=== PATIENT | female | born 1975 | race Hispanic/Latino ===

== ENCOUNTER 2020-11-06 19:06 | Emergency (ER) | payer MEDICARE ==
[2020-11-06 19:58] LABS: HEMATOCRIT 33.7 % (36-48); LYMPHOCYTES % (AUTO) 45.8 % (21.0-51.0); MEAN CORPUSCULAR HEMOGLOBIN 28.8 pg (27.0-33.0); MEAN CORPUSCULAR HGB CONC 34.4 g/dL (32.0-36.0); MEAN CORPUSCULAR VOLUME 83.6 fL (79-99); MONOCYTES % (AUTO) 6.6 % (3.0-13.0); NEUTROPHILS % (AUTO) 47.4 % (40.0-77.0); PLATELET COUNT (AUTO) 197 K/uL (130-400); RED BLOOD CELL COUNT(AUTO) 4.03 MIL/uL (4.00-5.50); RED CELL DISTRIBUTION WIDTH 12.8 % (11.0-15.5); WHITE BLOOD COUNT (AUTO) 4.4 K/uL (4.8-10.8)
[2020-11-06 20:14] LABS: INR 1.08 (0.85-1.15); PROTHROMBIN TIME 11.7 SEC (9.6-11.6)
[2020-11-06 20:16] LABS: PARTIAL THROMBOPLASTIN TIME 26.4 SEC (26.3-35.5)
[2020-11-06 20:21] LABS: CREATININE 0.7 mg/dL (0.5-1.5); POTASSIUM 3.9 mmol/L (3.5-5.1)
[2020-11-06 20:26] LABS: ALBUMIN 3.7 g/dL (3.5-5.0); BILIRUBIN,TOTAL 0.7 mg/dL (0.2-1.0); TOTAL PROTEIN, SERUM 6.6 g/dL (6.0-8.3)
[2020-11-06 20:38] LABS: CREATINE KINASE, TOTAL 60 U/L (21-232); LIPASE 88 U/L (114-286)
[2020-11-06 21:08] LABS: APPEARANCE,URINE Clear (CLEAR); BILIRUBIN,URINE Negative (NEGATIVE); COLOR,URINE Yellow (YELLOW); GLUCOSE, URINE (UA) Negative (NEGATIVE); KETONES,URINE Negative (NEGATIVE); LEUKOCYTE ESTERASE ,URINE Trace (NEGATIVE); NITRATE,URINE Negative (NEGATIVE); OCCULT BLOOD,URINE Moderate (NEGATIVE); PH,URINE 6.5 (5.0-8.0); PROTEIN,URINE Negative (NEGATIVE)
[2020-11-06 21:24] LABS: WBC,URINE 0-1 /HPF (0-1)
[2020-11-06 21:25] LABS: BACTERIA,URINE Rare /HPF (None Seen); SQUAMOUS EPITHELIAL CELL,UR Rare /HPF (0-2)
[2020-11-06] MEDS ORDERED: SODIUM CHLORIDE 0.9% 1000ML 1,000 ML IV ONE (21:42)
[2020-11-06] MEDS ORDERED: CEFTRIAXONE SODIUM 1 GM ONE (22:02)
== END 2020-11-07 00:28 | disposition home or self-care (01) ==
LOC: EDH 19:06
DX: N39.0 Urinary tract infection, site not specified (principal); E86.9 Volume depletion, unspecified; J45.909 Unspecified asthma, uncomplicated; F20.9 Schizophrenia, unspecified; F31.9 Bipolar disorder, unspecified; I50.9 Heart failure, unspecified; Z88.1 Allergy status to other antibiotic agents; Z88.0 Allergy status to penicillin; Z88.2 Allergy status to sulfonamides; Z88.6 Allergy status to analgesic agent
CPT/HCPCS: 36415; 51701; 70450; 71045; 80053; 81001; 82140; 82550; 83605; 83690; 84484; 85025; 85610; 85730; 87040 ×2; 87088; 93005; 96365; 96366; 99285; J0696; J7030

== ENCOUNTER 2021-04-10 11:46 | Emergency (ER) | payer MEDICARE ==
[~2021-04-10] VITALS: Ht 134.6 cm; Wt 61.2 kg
[2021-04-10 13:00] LABS: BASOPHILS % (AUTO) 0.2 % (0.0-5.0); LYMPHOCYTES % (AUTO) 44.8 % (21.0-51.0); MEAN CORPUSCULAR HGB CONC 34.8 g/dL (32.0-36.0); MEAN CORPUSCULAR VOLUME 83.1 fL (79-99); MONOCYTES % (AUTO) 6.5 % (3.0-13.0); NEUTROPHILS % (AUTO) 48.3 % (40.0-77.0); PLATELET COUNT (AUTO) 217 K/uL (130-400); RED BLOOD CELL COUNT(AUTO) 3.73 MIL/uL (4.00-5.50); RED CELL DISTRIBUTION WIDTH 13.2 % (11.0-15.5)
[2021-04-10 13:08] LABS: CREATININE 0.7 mg/dL (0.5-1.5); POTASSIUM 3.9 mmol/L (3.5-5.1)
[2021-04-10 13:12] LABS: ALBUMIN 3.6 g/dL (3.5-5.0); BILIRUBIN,TOTAL 0.8 mg/dL (0.2-1.0); TOTAL PROTEIN, SERUM 6.8 g/dL (6.0-8.3)
[2021-04-10 14:17] LABS: APPEARANCE,URINE Clear (CLEAR); BILIRUBIN,URINE Negative (NEGATIVE); COLOR,URINE Yellow (YELLOW); GLUCOSE, URINE (UA) Negative (NEGATIVE); KETONES,URINE Negative (NEGATIVE); LEUKOCYTE ESTERASE ,URINE Negative (NEGATIVE); NITRATE,URINE Negative (NEGATIVE); OCCULT BLOOD,URINE Small (NEGATIVE); PH,URINE 6.5 (5.0-8.0); PROTEIN,URINE Negative (NEGATIVE); UROBILINOGEN,URINE 0.2 mg/dL (0.2-1.0)
[2021-04-10 14:39] LABS: BACTERIA,URINE Few /HPF (None Seen); SQUAMOUS EPITHELIAL CELL,UR Few /HPF (0-2)
[2021-04-10 14:40] LABS: MUCUS,URINE Few LPF (None Seen)
[2021-04-10 19:02] VITALS: BP 120/89
== END 2021-04-10 19:26 | disposition home or self-care (01) ==
LOC: EDH 11:46
DX: R41.82 Altered mental status, unspecified (principal); R30.0 Dysuria; E03.9 Hypothyroidism, unspecified; E78.5 Hyperlipidemia, unspecified; F20.9 Schizophrenia, unspecified; I50.9 Heart failure, unspecified; J44.9 Chronic obstructive pulmonary disease, unspecified; Z88.0 Allergy status to penicillin; Z88.1 Allergy status to other antibiotic agents; Z88.2 Allergy status to sulfonamides; Z88.6 Allergy status to analgesic agent; Z92.21 Personal history of antineoplastic chemotherapy; Z92.3 Personal history of irradiation
CPT/HCPCS: 36415; 80053; 81001; 82140; 85025; 87040; 87088; 93005

== ENCOUNTER 2021-05-08 13:13 | Inpatient (IN) | payer MEDICARE ==
[~2021-05-08] VITALS: Ht 134.6 cm; Wt 62.8 kg
[2021-05-08 14:48] LABS: EOSINOPHILS % (AUTO) 0.2 % (0.0-8.0); HEMATOCRIT 32.7 % (36-48); LYMPHOCYTES % (AUTO) 42.9 % (21.0-51.0); MEAN CORPUSCULAR HEMOGLOBIN 28.7 pg (27.0-33.0); MEAN CORPUSCULAR HGB CONC 34.9 g/dL (32.0-36.0); MEAN CORPUSCULAR VOLUME 82.4 fL (79-99); MONOCYTES % (AUTO) 6.3 % (3.0-13.0); NEUTROPHILS % (AUTO) 50.4 % (40.0-77.0); PLATELET COUNT (AUTO) 137 K/uL (130-400); RED BLOOD CELL COUNT(AUTO) 3.97 MIL/uL (4.00-5.50); RED CELL DISTRIBUTION WIDTH 13.3 % (11.0-15.5); WHITE BLOOD COUNT (AUTO) 4.6 K/uL (4.8-10.8)
[2021-05-08 14:58] LABS: CARBON DIOXIDE 27 mmol/L (21-32); CHLORIDE 104 mmol/L (101-111); CREATININE 0.8 mg/dL (0.5-1.5); GLOMERULAR FILTR. RATE CALC 82 mL/min (>60); GLUCOSE,RANDOM 99 mg/dL (70-105); POTASSIUM 4.1 mmol/L (3.5-5.1); SODIUM SERUM 139 mmol/L (136-145); UREA NITROGEN, BLOOD 11 mg/dL (7-18)
[2021-05-08 15:04] LABS: ALANINE AMINOTRANSFERASE 50 U/L (12-78); ALBUMIN 3.8 g/dL (3.5-5.0); ASPARTATE AMINOTRANSFERASE 36 U/L (10-37); BILIRUBIN,TOTAL 1.1 mg/dL (0.2-1.0); CRP QUANTITATIVE < 2.00 mg/L (0.00-9.0); LIPASE 81 U/L (114-286); TOTAL PROTEIN, SERUM 6.7 g/dL (6.0-8.3)
[2021-05-08 15:06] LABS: AMMONIA 25 umol/L (11-32); CREATINE KINASE, TOTAL 86 U/L (21-232)
[2021-05-08 15:28] LABS: APPEARANCE,URINE Clear (CLEAR); BILIRUBIN,URINE Negative (NEGATIVE); COLOR,URINE Yellow (YELLOW); GLUCOSE, URINE (UA) Negative (NEGATIVE); KETONES,URINE Negative (NEGATIVE); LEUKOCYTE ESTERASE ,URINE Negative (NEGATIVE); NITRATE,URINE Negative (NEGATIVE); OCCULT BLOOD,URINE Moderate (NEGATIVE); PH,URINE 5.5 (5.0-8.0); PROTEIN,URINE Negative (NEGATIVE); UROBILINOGEN,URINE 0.2 mg/dL (0.2-1.0)
[2021-05-08 15:29] LABS: HCG,QUAL RESULT NEGATIVE (NEGATIVE)
[2021-05-08 15:40] LABS: BACTERIA,URINE Few /HPF (None Seen); MUCUS,URINE Rare LPF (None Seen); SQUAMOUS EPITHELIAL CELL,UR 0-2 /HPF (0-2)
[2021-05-08] MEDS ORDERED: LACTULOSE 20 GM/30 ML UDCUP ONE (16:25)
[2021-05-08] MEDS ORDERED: 0.9%NACL 1000ML 1,000 ML IV ONE (16:27)
[2021-05-08] MEDS ORDERED: LACTULOSE 20 GM/30 ML UDCUP PO ONE (16:30)
[2021-05-08] MEDS ORDERED: 0.9%NACL 1000ML 1,000 ML IV SCH (16:30)
[2021-05-08] MEDS ORDERED: DiphenhydrAMINE HCL 50 MG/ML VIAL IV PRN (17:30)
[2021-05-08] MEDS ORDERED: LACTULOSE 20 GM/30 ML UDCUP PO PRN (17:30)
[2021-05-08] MEDS: 0.9%NACL 1000ML 1,000 ML IV SCH (17:30)
[2021-05-08] MEDS ORDERED: NITROGLYCERIN 0.4 MG SL TAB SL PRN (17:30)
[2021-05-08] MEDS ORDERED: ONDANSETRON 4MG INJ IV PRN (17:30)
[2021-05-08] MEDS: LACTULOSE 20 GM/30 ML UDCUP PO SCH (21:23)
[2021-05-08] MEDS: FAMOTIDINE 20MG VIAL IV SCH (21:23)
[2021-05-09] MEDS ORDERED: LACT10SO62 PO (00:08)
[2021-05-09] MEDS ORDERED: OLAN2.5T29 PO (00:08)
[2021-05-09] MEDS ORDERED: LEVO75 PO (00:08)
[2021-05-09] MEDS ORDERED: MONT-39 PO (00:08)
[2021-05-09] MEDS ORDERED: ATOR40TA69 PO (00:08)
[2021-05-09] MEDS ORDERED: MULT-1367 PO (00:44)
[2021-05-09] MEDS ORDERED: VITAD50000 PO (00:44)
[2021-05-09] MEDS ORDERED: LACO150T2 PO (00:44)
[2021-05-09] MEDS ORDERED: LACO100T2 PO (00:44)
[2021-05-09] MEDS ORDERED: BUDE10.22 IH (00:44)
[2021-05-09] MEDS: 0.9%NACL 1000ML 1,000 ML IV SCH ×3 (03:50→23:30)
[2021-05-09] MEDS: FAMOTIDINE 20MG VIAL IV SCH ×2 (09:00→22:02)
[2021-05-09] MEDS: LACTULOSE 20 GM/30 ML UDCUP PO SCH ×2 (09:00→22:01)
[2021-05-09 10:28] LABS: HEMATOCRIT 29.5 % (36-48); MEAN CORPUSCULAR HEMOGLOBIN 28.7 pg (27.0-33.0); MEAN CORPUSCULAR HGB CONC 34.6 g/dL (32.0-36.0); MEAN CORPUSCULAR VOLUME 82.9 fL (79-99); RED BLOOD CELL COUNT(AUTO) 3.56 MIL/uL (4.00-5.50); RED CELL DISTRIBUTION WIDTH 13.2 % (11.0-15.5); WHITE BLOOD COUNT (AUTO) 4.3 K/uL (4.8-10.8)
[2021-05-09 10:43] LABS: ALBUMIN 3.4 g/dL (3.5-5.0); BILIRUBIN,TOTAL 1.4 mg/dL (0.2-1.0); CREATININE 0.7 mg/dL (0.5-1.5); POTASSIUM 4.1 mmol/L (3.5-5.1); TOTAL PROTEIN, SERUM 5.6 g/dL (6.0-8.3)
[2021-05-09] MEDS ORDERED: COMPOUND NARC IV MISC 1 EACH IVSOLN MISC PRN (11:00)
[2021-05-09] MEDS ORDERED: LACOSAMIDE 200 MG/20 ML VIAL IV SCH ×2 (11:00→21:00)
[2021-05-09] MEDS ORDERED: COMPOUND IV REFRIGERATED 1 EACH IVSOLN MISC PRN (11:00)
[2021-05-09] MEDS: DEXAMETHASONE SOD PHOSPHATE 4 MG/ML 1ML VIAL IVP SCH ×2 (11:47→17:49)
[2021-05-09] MEDS ORDERED: IOHEXOL-350 50ML VIAL IV ONE (11:53)
[2021-05-09 19:45] VITALS: BP 127/70
[2021-05-09 23:26] VITALS: BP 125/87
[2021-05-10] MEDS: DEXAMETHASONE SOD PHOSPHATE 4 MG/ML 1ML VIAL IVP SCH ×3 (00:35→12:06)
[2021-05-10 03:44] VITALS: BP 106/64
[2021-05-10 07:30] VITALS: BP_SYST 103; BP_SYST 105; BP_DIAS 48; BP_DIAS 60
[2021-05-10] MEDS: FAMOTIDINE 20MG VIAL IV SCH ×2 (09:10→21:25)
[2021-05-10] MEDS: MULTIVITAMIN TABLET PO SCH (09:15)
[2021-05-10] MEDS: 0.9%NACL 1000ML 1,000 ML IV SCH (09:30)
[2021-05-10] MEDS: LACOSAMIDE 200 MG/20 ML VIAL IV SCH ×2 (09:45→21:26)
[2021-05-10] MEDS ORDERED: LEVOTHYROXINE 75 MCG TABLET ONE (09:50)
[2021-05-10 11:00] VITALS: BP 104/55
[2021-05-10] MEDS: ALBUTEROL 0.083% 2.5 MG/3 ML INH IH SCH ×3 (12:00→18:26)
[2021-05-10 15:30] VITALS: BP 105/67
[2021-05-10] MEDS: BUDESONIDE 0.5 MG/2 ML INH IH SCH (18:33)
[2021-05-10 19:42] VITALS: BP 120/66
[2021-05-10] MEDS: OLANZAPINE 5 MG TAB PO SCH ×2 (21:00→21:26)
[2021-05-10] MEDS: MONTELUKAST SODIUM 10 MG TAB PO SCH ×2 (21:00→21:26)
[2021-05-10] MEDS: ATORVASTATIN 40 MG TABLET PO SCH ×2 (21:00→21:26)
[2021-05-10] MEDS: BALSAM PERU/CASTOR OIL 60 GM TUBE TP SCH (21:25)
[2021-05-10 23:56] VITALS: BP 112/74
[2021-05-11] MEDS: ALBUTEROL 0.083% 2.5 MG/3 ML INH IH SCH ×5 (00:21→23:31)
[2021-05-11] MEDS: DEXAMETHASONE SOD PHOSPHATE 4 MG/ML 1ML VIAL IVP SCH (00:50)
[2021-05-11 03:40] VITALS: BP 98/55
[2021-05-11] MEDS: 0.9%NACL 1000ML 1,000 ML IV SCH ×2 (06:17→15:30)
[2021-05-11] MEDS: BUDESONIDE 0.5 MG/2 ML INH IH SCH ×2 (06:18→18:28)
[2021-05-11 07:44] VITALS: BP 101/68
[2021-05-11] MEDS: MEDROL DAY 1 BREAKFAST PO NR (07:48)
[2021-05-11] MEDS: LEVOTHYROXINE 75 MCG TABLET PO SCH (09:16)
[2021-05-11] MEDS: FAMOTIDINE 20MG VIAL IV SCH (09:16)
[2021-05-11] MEDS: MULTIVITAMIN TABLET PO SCH (09:16)
[2021-05-11] MEDS: BALSAM PERU/CASTOR OIL 60 GM TUBE TP SCH ×3 (09:17→20:18)
[2021-05-11] MEDS: LACOSAMIDE 200 MG/20 ML VIAL IV SCH ×2 (09:22→20:17)
[2021-05-11 10:11] LABS: BASOPHILS % (AUTO) 0.1 % (0.0-5.0); HEMATOCRIT 29.4 % (36-48); LYMPHOCYTES % (AUTO) 5.8 % (21.0-51.0); MEAN CORPUSCULAR HEMOGLOBIN 28.7 pg (27.0-33.0); MEAN CORPUSCULAR VOLUME 84.5 fL (79-99); MONOCYTES % (AUTO) 3.5 % (3.0-13.0); NEUTROPHILS % (AUTO) 89.2 % (40.0-77.0); PLATELET COUNT (AUTO) 210 K/uL (130-400); RED BLOOD CELL COUNT(AUTO) 3.48 MIL/uL (4.00-5.50); RED CELL DISTRIBUTION WIDTH 14.3 % (11.0-15.5); WHITE BLOOD COUNT (AUTO) 9.5 K/uL (4.8-10.8)
[2021-05-11 10:33] LABS: CREATININE 0.7 mg/dL (0.5-1.5); POTASSIUM 3.4 mmol/L (3.5-5.1)
[2021-05-11 10:41] LABS: ALANINE AMINOTRANSFERASE 37 U/L (12-78); ALBUMIN < 0.6 g/dL (3.5-5.0); ASPARTATE AMINOTRANSFERASE 21 U/L (10-37); BILIRUBIN,DIRECT < 0.1 mg/dL (0.0-0.3); BILIRUBIN,TOTAL 0.7 mg/dL (0.2-1.0); TOTAL PROTEIN, SERUM 5.8 g/dL (6.0-8.3)
[2021-05-11 10:45] VITALS: BP 121/72
[2021-05-11] MEDS: MEDROL DAY 1 LUNCH AND DINNER PO NR ×2 (13:43→15:27)
[2021-05-11 16:59] VITALS: BP 122/83
[2021-05-11 19:25] VITALS: BP 135/78
[2021-05-11] MEDS: ATORVASTATIN 40 MG TABLET PO SCH (20:18)
[2021-05-11] MEDS: MONTELUKAST SODIUM 10 MG TAB PO SCH (20:18)
[2021-05-11] MEDS: OLANZAPINE 5 MG TAB PO SCH (20:18)
[2021-05-11] MEDS ORDERED: MEDROL DAY1 HS PO NR (21:00)
[2021-05-11 23:26] VITALS: BP 129/81
[2021-05-12] MEDS: 0.9%NACL 1000ML 1,000 ML IV SCH ×2 (00:47→11:30)
[2021-05-12 03:21] VITALS: BP 101/65
[2021-05-12] MEDS: BUDESONIDE 0.5 MG/2 ML INH IH SCH ×2 (06:21→18:42)
[2021-05-12] MEDS: ALBUTEROL 0.083% 2.5 MG/3 ML INH IH SCH ×3 (06:21→18:42)
[2021-05-12 06:22] LABS: HEMATOCRIT 27.5 % (36-48); MEAN CORPUSCULAR HEMOGLOBIN 28.9 pg (27.0-33.0); MEAN CORPUSCULAR HGB CONC 33.1 g/dL (32.0-36.0); MEAN CORPUSCULAR VOLUME 87.3 fL (79-99); MONOCYTES % (AUTO) 5.6 % (3.0-13.0); NEUTROPHILS % (AUTO) 79.4 % (40.0-77.0); PLATELET COUNT (AUTO) 178 K/uL (130-400); RED BLOOD CELL COUNT(AUTO) 3.15 MIL/uL (4.00-5.50); RED CELL DISTRIBUTION WIDTH 14.2 % (11.0-15.5); WHITE BLOOD COUNT (AUTO) 7.4 K/uL (4.8-10.8)
[2021-05-12 06:27] LABS: CREATININE 0.5 mg/dL (0.5-1.5); POTASSIUM 3.6 mmol/L (3.5-5.1)
[2021-05-12] MEDS: MEDROL DAY 1 BREAKFAST PO NR (07:28)
[2021-05-12] MEDS ORDERED: MEDROL DAY 2 BRK PO NR (07:30)
[2021-05-12 08:08] VITALS: BP 113/71
[2021-05-12] MEDS ORDERED: FOSPHENYTOIN SODIUM IJ SCH (09:00)
[2021-05-12] MEDS ORDERED: PANTOPRAZOLE 40 MG TAB DR PO SCH (09:00)
[2021-05-12] MEDS ORDERED: FOSPHENYTOIN SODIUM 100 MG/2 ML VIAL IV SCH ×2 (09:00→21:00)
[2021-05-12] MEDS ORDERED: LACOSAMIDE 200 MG/20 ML VIAL IV SCH (09:00)
[2021-05-12] MEDS ORDERED: [UNRECOGNIZED DRUG - OTHER] IJ SCH (09:00)
[2021-05-12] MEDS: LEVOTHYROXINE 75 MCG TABLET PO SCH (10:19)
[2021-05-12] MEDS: MULTIVITAMIN TABLET PO SCH (10:19)
[2021-05-12] MEDS: BALSAM PERU/CASTOR OIL 60 GM TUBE TP SCH ×2 (10:20→14:00)
[2021-05-12 10:51] VITALS: BP 102/65
[2021-05-12] MEDS ORDERED: MEDROL DAY 2 LCH PO NR (11:30)
[2021-05-12] MEDS ORDERED: COMPOUND IV MISC 1 EACH IVSOLN MISC PRN (12:00)
[2021-05-12] MEDS: MEDROL DAY 1 LUNCH AND DINNER PO NR ×2 (12:45→15:31)
[2021-05-12 16:13] VITALS: BP 128/77
[2021-05-12] MEDS ORDERED: MEDROL DAY 2 DIN PO NR (16:30)
[2021-05-12] MEDS ORDERED: MEDROL DAY 2 HS PO NR (21:00)
[2021-05-12] MEDS ORDERED: PANTOPRAZOLE 40 MG/VIAL IVP SCH (21:00)
[2021-05-12] MEDS ORDERED: FOSPHENYTOIN SODIUM IV SCH (21:00)
[2021-05-12] MEDS ORDERED: [UNRECOGNIZED DRUG - OTHER] IV SCH (21:00)
[2021-05-13] MEDS ORDERED: MEDROL DAY 3 PO NR (07:30)
[2021-05-14] MEDS ORDERED: MEDROL DAY 4 BKF PO NR (07:30)
[2021-05-14] MEDS ORDERED: MEDROL DAY 4 LCH PO NR (11:30)
[2021-05-14] MEDS ORDERED: MEDROL DAY 4 DIN PO NR (16:30)
[2021-05-15] MEDS ORDERED: MEDROL DAY 6 PO NR (07:30)
[2021-05-15] MEDS ORDERED: MEDROL DAY 5 BKF PO NR (07:30)
[2021-05-15] MEDS ORDERED: MEDROL DAY 5 HS PO NR (21:00)
[2021-05-17] MEDS ORDERED: ERGOCALCIFEROL (VITAMIN D2) 50,000 UNIT CAPSULE PO SCH (09:00)
== END 2021-05-12 19:00 | disposition short-term general hospital (02) | DRG 100 ==
LOC: EDH 13:13 → UNDOADMOB 13:14 → INTOOBSV 13:14 → EDHIP 13:14 → OBSVTOIN 13:14 → EDHIP 05-09 19:45 → 4AH 05-09 19:45 → UNDODISIN 05-12 19:00
PROVIDERS: ADMIT Internal Medicine; ATTEND Internal Medicine
DX: G40.901 Epilepsy, unspecified, not intractable, with status epilepticus (principal); G93.6 Cerebral edema; J69.0 Pneumonitis due to inhalation of food and vomit; G81.94 Hemiplegia, unspecified affecting left nondominant side; D49.6 Neoplasm of unspecified behavior of brain; Z20.822 Contact with and (suspected) exposure to COVID-19; F20.9 Schizophrenia, unspecified; F31.9 Bipolar disorder, unspecified; E78.00 Pure hypercholesterolemia, unspecified; M85.80 Other specified disorders of bone density and structure, unspecified site; J45.909 Unspecified asthma, uncomplicated; R62.50 Unspecified lack of expected normal physiological development in childhood; E87.8 Other disorders of electrolyte and fluid balance, not elsewhere classified; E03.9 Hypothyroidism, unspecified; S30.810A Abrasion of lower back and pelvis, initial encounter; Y93.89 Activity, other specified; Y92.89 Other specified places as the place of occurrence of the external cause; Y99.8 Other external cause status; Z92.3 Personal history of irradiation; Z92.21 Personal history of antineoplastic chemotherapy; Z85.6 Personal history of leukemia; Z88.6 Allergy status to analgesic agent; Z88.0 Allergy status to penicillin; Z88.2 Allergy status to sulfonamides; Z88.8 Allergy status to other drugs, medicaments and biological substances
CPT/HCPCS: 36415; 70450; 70470; 71045; 74018; 76705; 80048; 80053; 80076; 81001; 81003; 81025; 82140; 82550; 83690; 84439; 84443; 84481; 85025; 85027; 86140; 87635; 87804; 87880; 92610; 94640; 94664; G0378; J1100; J3490; J7030; J7509; Q2009; Q9967